=== PATIENT | male | born 1950 | race Caucasian/White ===

== ENCOUNTER 2017-03-25 11:41 | Day surgery (SDC) | payer MEDICARE, OTHER ==
[2017-03-23 09:36] LABS: HEMATOCRIT 45.3 % (40.0-51.0); HEMOGLOBIN 15.7 g/dL (13.6-17.8)
--- NOTE | ~2017-03-25 | OP ---
Record Of Operation [facility] [address] [place]. [address] NAME: LAUREN CHEN : 52 STATUS : [facility]#: [id number] AGE: 66 ADM/REG DATE : 03/25/17 MR#: [id number] REPORT SERV DATE: 03/25/17 DICTATED BY: Ponce RIVERA DATE: 03/25/17 REPORT STATUS : Draft TRANSCRIBED BY: SARITA DATE: 03/25/17 DATE OF PROCEDURE: 03/25/2017 PREOPERATIVE DIAGNOSIS: Elevated PSA. POSTOPERATIVE DIAGNOSIS: Elevated PSA. PROCEDURE: Transrectal ultrasound-guided needle biopsy of the prostate. ANESTHESIA: MAC. COMPLICATIONS: Mild anal stenosis. DRAINS: None. ESTIMATED BLOOD LOSS: Minimal. BRIEF HISTORY: Mr. Chen is a 66-year-old white male with a history of an elevated PSA. In followup, it was 6.88 with 7% free. We decided to proceed with transrectal biopsy. He was unable tolerate this in the office due to some anal stenosis following hemorrhoid surgery. We discussed the risks of bleeding, infection, anesthesia, injury to adjacent organs, inability to detect cancer even if present, etc. There were no unanswered questions. DESCRIPTION OF PROCEDURE: Under excellent MAC anesthesia, the patient was placed in a left lateral decubitus position knees to chest. There was mild anal stenosis and some mild excoriation following insertion of the probe. Transrectal ultrasonography was performed and showed some central calcifications with a volume of 33. A total of 14 biopsies were taken, two from the left base, three from the left mid gland, two from the left apex, two from the right base, three from the right mid gland, two from the right apex. The patient tolerated the procedure well. A Gelfoam plug was inserted postoperatively to minimize rectal bleeding. I plan to discharge Mr. Chen as an outpatient with following instructions. DISCHARGE INSTRUCTIONS: 1. Home today. 2. Percocet 5/325 one to two p.o. q.4 hours p.r.n. pain, #15. 3. Follow up in my office in one week to review pathology. Call for fever, severe bleeding, etc. JACKY/SARITA Ponce Rivera M.D. / [id number]
[~2017-03-25 11:41] MED LIST: ADVIL PO; ARGENINE PO; ASAB PO; FISH OIL1200 MG PO; GLUCCHONDR PO; POTASSIUM GLUCO99 MG PO; PREV15 PO; T PO; ZANTAC150 MG PO
[2017-05-23] MEDS ORDERED: PREV15 PO (14:10)
[2017-05-25] MEDS ORDERED: NEXIUM20 M1 PO (07:21)
[2017-05-25] MEDS ORDERED: VITAMIN B-121000 MC1 SL (07:26)
[2017-05-25] MEDS ORDERED: CIP5 PO (07:29)
== END 2017-03-25 17:35 | disposition home or self-care (01) ==
LOC: SDC 11:41
PROC: 0VB08ZX Excision of Prostate, Via Natural or Artificial Opening Endoscopic, Diagnostic (ICD-10-PCS; principal; 2017-03-25 14:00)
DX: C61 Malignant neoplasm of prostate (principal); F17.290 Nicotine dependence, other tobacco product, uncomplicated; M19.90 Unspecified osteoarthritis, unspecified site; K21.9 Gastro-esophageal reflux disease without esophagitis; N40.0 Benign prostatic hyperplasia without lower urinary tract symptoms; K64.9 Unspecified hemorrhoids; Z98.890 Other specified postprocedural states; Z88.0 Allergy status to penicillin
CPT/HCPCS: 76872; 76942; 85014; 85018; 88305; 93005; J2405; J3010